=== PATIENT | female | born 1975 | race Caucasian/White ===

== ENCOUNTER 2024-06-01 13:41 | Emergency (ER) | payer BC, SELFPAY ==
--- NOTE | 2024-06-01 13:58 | ED.GENMED ---
ED Provider Triage
<Mickey Jones PA-C - Last Filed: 06/01/24 13:59>
-
Patient seen by provider in Triage?: Seen in Triage
Attestation: A medical screening examination has been initiated by a qualified medical provider. Based on the assessment performed at this time, it has been determined that an emergent medical condition may exist and the patient has been informed
that further medical evaluation and possible additional diagnostic testing may be needed.
HPI: 49-year-old female presents to the emergency department for evaluation of intermittent but worsening chest pain over the past week. Pain is left-sided, radiates to the shoulder into the left jaw. Not pleuritic and not worse with position.
Strong family history of precocious coronary disease, personal history of hypertension and hyperlipidemia
GENERAL: Alert , in no apparent distress
EYE: No visual abnormalities.
NECK: Trachea midline
ENT: No visible abnormalities.
LUNGS: No acute respiratory distress
NEUROLOGICAL: Alert and oriented
SKIN: Skin intact. No visible changes.
MUSCULOSKELETAL: Moving extremities normally
PSYCH: Normal and appropriate interaction.
This is a medical evaluation conducted in person to initiate diagnostic evaluation and provide initial therapeutics. Please see further documentation by the treating clinician.
History of Present Illness
<Mickey Jones PA-C - Last Filed: 06/01/24 13:59>
General
Chief Complaint: Chest Pain
Time Seen by Provider: 06/01/24 19:57
<ANGELIA Rangel - Last Filed: 06/01/24 21:36>
General
Source: patient
Exam Limitations: none
History of Present Illness
History of Present Illness:
This is a 49 year old female that comes in with c/o left upper chest pain. States that she gets this weird pressure under her collar bone and into the arm pit. . States that this started last and it comes and goes. States that Pepcid
sometimes help. 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 States that yesterday and today it felt a little more intense. States that last night it lasted for about 1 hour and then it
fades away. Denies any fever, chills, SOB, abd pain, nausea, vomiting, diarrhea, headache, dizziness, urinary burning.
Past History
<ANGELIA Rangel - Last Filed: 06/01/24 21:36>
Past History
ED Past Medical History: HTN, Hypercholesterolemia and Other (MS)
ED Past Surgical History: Orthopedic (Left hand surgery, Left finger surgery)
Social History
Tobacco: Non-smoker
Alcohol: Occasional
Personal:
Living: with family
Review of Systems
<ANGELIA Rangel - Last Filed: 06/01/24 21:36>
Review of Systems
All Other Systems: ROS reviewed and negative except as documented in HPI and ROS
Constitutional: Reports no symptoms; Denies fever or chills
EENT: Reports no symptoms
Respiratory: Reports no symptoms; Denies cough or trouble breathing
Cardiac: Reports chest pain
ABD/GI: Reports no symptoms; Denies abdominal pain, nausea, vomiting or diarrhea
: Reports no symptoms; Denies dysuria, frequency or urgency
Musculoskeletal: Reports no symptoms
Skin: Reports no symptoms
Neurological: Reports no symptoms; Denies dizzy or headache
Psychiatric: Reports no symptoms
Phy Exam
<ANGELIA Rangel - Last Filed: 06/01/24 21:36>
General Physical Exam
General Presentation: well appearing and no apparent distress
General age: appears stated age
General Skin: warm and dry
General Habitus: normal
General Mental: alert
General Hydration: appears well hydrated
ENT Exam
ENT Exam: TM's normal, pharynx normal and neck supple
Eye Exam
Eye Exam: EOMI
Cardiovascular Exam
Cardiovascular Exam: regular rate/rhythm, no edema, no murmur and normal peripheral pulses
Pulmonary Exam
Pulmonary Exam: lungs clear, no respiratory distress, no rales, no crackles, no rhonchi and no cough
Gastrointestinal Exam
Gastrointestinal Exam: normal bowel sounds, non tender, soft, no organomegaly, no pulsatile mass and non distended
Musculoskeletal Exam
Musculoskeletal Exam: full ROM and no edema
Skin Exam
Skin Exam: normal color, warm/dry, no rash and no petechia
Psychiatric Exam
Psychiatric Exam: normal mood/affect
Scores
<ANGELIA Rangel - Last Filed: 06/01/24 21:36>
Heart Score for Chest Pain Patients
STEMI patient?: No
History: Slightly or Non-Suspicious
ECG: Normal
Age: >45 - <65 years
Risk Factors: 1 or 2 Risk Factors
Troponin: </= Normal Limit
Heart Score for Chest Pain Patients: 2
Heart Score Risk: 2.5% MACE over next 6 weeks
Course
<Mickey Jonse PA-C - Last Filed: 06/01/24 13:59>
Orders/Labs/Results
Orders:
Orders
06/01/24 13:44
ECG [Electrocardiogram (*1)] Urgent
Reason for Study: Chest Pain
06/01/24 13:45
EKG- Treatment ONCE
06/01/24 13:58
CR Chest - 2 Views Urgent
Comment:
Reason For Exam: chest pain
06/01/24 14:08
Complete Blood Count/With Diff Urgent
Comprehensive Metabolic Panel Urgent
Troponin I Urgent
06/01/24 16:39
Electrocardiogram (*1) Urgent
Reason for Study: Chest Pain
06/01/24 16:40
EKG- Treatment ONCE
06/01/24 16:55
Troponin I Urgent
06/01/24 20:26
D-Dimer Urgent
Abnormal Lab Results
06/01/24
14:08
RBC 3.72 L 10^6/uL
(4.20-5.40)
Hgb 11.6 L g/dL
(12.0-16.0)
Hct 33.0 L %
(37.0-47.0)
MCH 31.2 H pg
(27.0-31.0)
BUN 19 H mg/dl
(7-17)
AST 44 H U/L
(14-36)
ALT 47 H U/L
(0-35)
06/01/24 14:08
06/01/24 14:08
Vital Signs
Initial and Last Documented VS:
Initial Vital Signs
Temp Pulse Resp BP Pulse Ox
99.2 F 79 16 154/109 97
06/01/24 13:59 06/01/24 13:59 06/01/24 13:59 06/01/24 13:59 06/01/24 13:59
Last Documented Vital Signs
Temp Pulse Resp BP Pulse Ox
99.2 F 87 18 154/109 98
06/01/24 13:59 06/01/24 19:24 06/01/24 19:29 06/01/24 13:59 06/01/24 19:24
Lorlt;ANGELIA Rangel - Last Filed: 06/01/24 21:36>
Orders/Labs/Results
Orders:
Orders
06/01/24 13:44
ECG [Electrocardiogram (*1)] Urgent
Reason for Study: Chest Pain
06/01/24 13:45
EKG- Treatment ONCE
06/01/24 13:58
CR Chest - 2 Views Urgent
Comment:
Reason For Exam: chest pain
06/01/24 14:08
Complete Blood Count/With Diff Urgent
Comprehensive Metabolic Panel Urgent
Troponin I Urgent
06/01/24 16:39
Electrocardiogram (*1) Urgent
Reason for Study: Chest Pain
06/01/24 16:40
EKG- Treatment ONCE
06/01/24 16:55
Troponin I Urgent
06/01/24 20:26
D-Dimer Urgent
Abnormal Lab Results
06/01/24
14:08
RBC 3.72 L 10^6/uL
(4.20-5.40)
Hgb 11.6 L g/dL
(12.0-16.0)
Hct 33.0 L %
(37.0-47.0)
MCH 31.2 H pg
(27.0-31.0)
BUN 19 H mg/dl
(7-17)
AST 44 H U/L
(14-36)
ALT 47 H U/L
(0-35)
06/01/24 14:08
06/01/24 14:08
H/H slightly low. Dehydration. AST/ALT slightly elevated, (patient states that her and children just had COVID), Both Troponin's >0.012
D-dimer 0.45
Vital Signs
Initial and Last Documented VS:
Initial Vital Signs
Temp Pulse Resp BP Pulse Ox
99.2 F 79 16 154/109 97
06/01/24 13:59 06/01/24 13:59 06/01/24 13:59 06/01/24 13:59 06/01/24 13:59
Last Documented Vital Signs
Temp Pulse Resp BP Pulse Ox
99.2 F 87 18 154/109 98
06/01/24 13:59 06/01/24 19:24 06/01/24 19:29 06/01/24 13:59 06/01/24 19:24
<ANGELIA Rangel - Last Filed: 06/01/24 21:36>
MDM/Problems Addressed
Differential Diagnosis Includes:
Coronary syndrome. PE, Musculoskeletal pain
MDM/Problems Addressed:
This is a 49 year old female that comes in with c/o this weird pressure under the left collar bone. States that this started last .
Will check labs, D=dimer, chest x-ray. Patient did call her Hand Mixer and he will follow up a stress test he told patient.
Back into see patient. Explained that her D-dimer is negative along with both Troponin's. Chest x-ray normal. Will have patient follow up with her Hand Mixer. Return with any concerns.
Chronic conditions affecting care:
MS
Acute Exacerbation and/or Progression of Chronic Illness:
NA
<ANGELIA Rangel - Last Filed: 06/01/24 21:36>
*Radiology
Radiology exam reviewed: radiology read reviewed (Chest-NO evidence of active cardiopulmonary disease. )
*Pulse Oximetry
Patient hypoxic: no
*EKG
Interpreted by ED Provider?: Yes
Heart Rate: 74
Rate: normal
Rhythm: sinus
[place]: normal axis
Interval: normal interval
QRS Pattern: normal QRS
Ischemia: non-specific ST changes (V3, V4, V5, V6)
*Furnace Room Supervisor Interpretation
Rate: Furnace Room Supervisor- N/A
*Critical Care Note
Total Time (30-74mins, 75-104mins- exclusive of procedures): Not Applicable
ED Attending Note
<Mickey Jones PA-C - Last Filed: 06/01/24 13:59>
-
Portions of this chart may have been created with voice recognition software.� Occasional wrong word or��sound alike� substitutions may have occurred due to the inherent limitations of voice recognition software.
Discharge Plan
Departure
Patient Disposition: Home (Routine Discharge)
Date of Disposition: 06/01/24
Time of Disposition: 21:18
Patient with high blood pressure during this ER visit?: Yes
Condition: Good
Covid-19: Not Applicable
Discharge Problem:
Left upper chest pain
Instructions: Chest Pain NON-[facility] Hand Mixer Follow Up, BLOOD PRESSURE
Referrals:
Nidia Roque, [Family Provider] - Follow up in 2-3 days
Activity Restrictions/Additional Instructions:
As discussed, your blood work shows that your liver enzymes are slightly elevated. This may be due to the fact that you have COVID with your family and did not realize this. Your D-dimer and both Troponin's are normal. Chest x-ray is normal. Please
follow up with the your Hand Mixer for further evaluation. This may be musculoskeletal. Please use Tylenol 1000mg every 6 hours for pain. IF YOU HAVE INCREASED OR CHANGING PAIN, OR YOU HAVE ANY OTHER CONCERNS PLEASE RETURN TO THE EMERGENCY ROOM
Interventions
Interventions:
*Risk Screen - Suicide Last Done: 06/01/24 13:59
*General Assessment Last Done: 06/01/24 19:29
*Neglect/Abuse Screening Last Done: 06/01/24 13:59
*ED COVID-19 Vaccine History Last Done: 06/01/24 19:29
ED- Cardiac Assessment Last Done: 06/01/24 19:29
Discharge Date and Time
Print Language: BULGARIAN
[2024-06-01 13:59] VITALS: BP 154/109
[2024-06-01 14:15] LABS: % Basophils 0.6 % (0-2); % Eosinophils 2.9 % (0-6); % Immature Granulocytes 0.3 % (0-0.5); % Lymphocytes 25.3 % (20.5-51.1); % Neutrophils 63.9 % (42.2-75.2); Absolute Eosinophils 0.2 10^3/uL (0-0.7); Absolute Lymphocytes 1.7 10^3/uL (1.2-3.4); Absolute Monocytes 0.5 10^3/uL (0.1-0.6); Absolute Neutrophils 4.4 10^3/uL (1.4-6.5); Hemoglobin 11.6 g/dL (12.0-16.0); Mean Corp Hgb Conc. 35.2 g/dL (33.0-37.0); Mean Corpuscular Hgb 31.2 pg (27.0-31.0); Mean Corpuscular Volume 88.7 fL (81.0-99.0); Mean Platelet Volume 8.7 fL (7.4-10.4); Nucleated Red Blood Cells % 0 %; Platelet Count 295 10^3/uL (130-400); Red Blood Cell Count 3.72 10^6/uL (4.20-5.40); Red Cell Dist. Width 11.7 % (11.5-14.5); White Blood Cell Count 6.9 10^3/uL (4.8-10.8)
[2024-06-01 14:34] LABS: ALT (SGPT) 47 U/L (0-35); AST (SGOT) 44 U/L (14-36); Alkaline Phosphatase 55 U/L (38-126); Blood Urea Nitrogen 19 mg/dl (7-17); Calcium 10.1 mg/dl (8.4-10.2); Carbon Dioxide 28 mmol/L (22-30); Chloride 99 mmol/L (98-107); Glucose 99 mg/dl (70-99); Potassium 4.2 mmol/L (3.5-5.1); Sodium 137 mmol/L (135-145); Total Bilirubin 0.5 mg/dl (0.2-1.3); Total Protein 7.4 g/dl (6.3-8.2); eGFR > 60.00
[2024-06-01 14:44] LABS: Troponin I < 0.012 ng/ml
[2024-06-01 17:40] LABS: Troponin I < 0.012 ng/ml
[2024-06-01 20:47] LABS: D-Dimer 0.45 ug/mlFEU (0.00-0.50)
[2024-06-01 21:26] VITALS: BP 146/95
== END 2024-06-01 21:30 | disposition home or self-care (01) ==
LOC: EMR 13:41
PROVIDERS: Clinical Nurse Specialist Family Health; Emergency Medicine; Physician Assistant; EMERGENCY PHYSICIAN Emergency Medicine; FAMILY PHYSICIAN Family Medicine
DX: R07.89 Other chest pain (principal); I10 Essential (primary) hypertension; E78.00 Pure hypercholesterolemia, unspecified; E86.0 Dehydration; G35 Multiple sclerosis; Z82.49 Family history of ischemic heart disease and other diseases of the circulatory system
CPT/HCPCS: 99283; 71046; 80053; 84484; 85025; 85379; 93005